=== PATIENT | female | born 1960 | race Hispanic/Latino ===

== ENCOUNTER 2017-12-10 14:23 | Emergency (ER) | payer OTHER ==
[2017-12-10 14:59] VITALS: BMI 33.9
[2017-12-10] MEDS ORDERED: Oxycodone/Acetaminophen 5/325 mg Tab PO STA ×2 (14:59→17:20)
--- NOTE | 2017-12-10 15:24 | ED PDOC ---
HPI: Trauma/Fall - HPI Time Seen by Provider: 12/10/17 14:42 Chief Complaint (Nursing): Trauma Chief Complaint (Provider): Trauma History Per: Patient, Family () History/Exam Limitations: no limitations Onset/Duration Of Symptoms: Mins (prior to arrival) Additional Complaint(s): 57 year old female who presents to the emergency department with a complaint of right hand, left knee and right ankle pain status post falling down stairs when she missed a step and attempted to break fall with right hand prior to arrival. Patient denied any head injury, numbness or tingling. 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/2016 - Family History Family History: States: Unknown Family Hx - Social History Current smoker - smoking cessation education provided: No Ex-Smoker (has not smoked in the last 12 months): No Alcohol: Social Drugs: Denies - Immunization History Hx Tetanus Toxoid Vaccination: No Hx Influenza Vaccination: No Hx Pneumococcal Vaccination: No - Home Medications Home Medications: Ambulatory Orders Medication Instructions Recorded Diclofenac Sodium [Voltaren] 50 mg PO TID PRN #15 ect 12/10/17 - Allergies Allergies/Adverse Reactions: Allergies Allergy/AdvReac Type Severity Reaction Status Date / Time amoxicillin [From Augmentin] Allergy RASH Verified 12/10/17 14:51 bupropion [From Wellbutrin] Allergy RASH Verified 12/10/17 14:51 clavulanic acid Allergy RASH Verified 12/10/17 14:51 [From Augmentin] metronidazole [From Flagyl] Allergy RASH Verified 12/10/17 14:51 Review of Systems ROS Statement: Except As Marked, All Systems Reviewed And Found Negative Musculoskeletal: Positive for: Hand Pain (right-sided), Leg Pain (left knee), Foot Pain (right ankle) Neurological: Negative for: Numbness (or tingling), Other (head injury) Physical Exam - Reviewed Nursing Documentation Reviewed: Yes Vital Signs Reviewed: Yes - Physical Exam Appears: Positive for: Non-toxic, In Acute Distress (moderate pain) Pulses-Dorsalis Pedis (R): 2+ Pulses-Femoral (L): 2+ Extremity: Positive for: Tenderness (moderately to right thenar, right lateral malleolus and left knee ), Swelling (moderately to right lateral malleolus and left knee), Other (superfical abrasions to left knee). Negative for: Deformity (right hand, right ankle or left knee) Neurologic/Psych: Positive for: Alert, Oriented - Progress ED Course And Treament: Ankle immobilized in aircast splint applied by digital imaging technician. Crutches provided. Knee abrasions irrigated with NS and DSD applied. Knee tara wrapped applied. Medical Decision Making Medical Decision Making: Initial Impression: Right ankle, right hand and left knee pain S/P fall Initial Plan: * Xray knee (left) * Xray ankle (right) * Xray hand (right) * Ultram 100mg PO Time: 1612 --Xray knee (left) FINDINGS: BONES: Satisfactory position alignment of components left TKA. . No fracture. JOINTS: Normal. No osteoarthritis. JOINT EFFUSION: None. OTHER FINDINGS: None. IMPRESSION: No acute findings related to/accounting for the clinical presentation. Time: 1613 --Xray hand (right) FINDINGS: BONES: Normal. No fracture. JOINTS: Mild osteoarthritic changes distal interphalangeal and to lesser extent proximal interphalangeal joint distribution. SOFT TISSUES: Normal. OTHER FINDINGS: None. IMPRESSION: No acute findings related to/accounting for the clinical presentation. Time: 1613 --Xray ankle (right) FINDINGS: BONES: Normal. No fracture. JOINTS: Normal. No osteoarthritis. Ankle mortise maintained. Talar dome intact SOFT TISSUES: Lateral soft tissue swelling without distal fibular fracture. OTHER FINDINGS: None. IMPRESSION: Soft tissue swelling without acute articular or osseous abnormality. Time: 1653 --Upon provider reevaluation, patient is feeling better, medically stable and requires no further treatment in the ED at this time. Patient will be discharged home. Counseling was provided and all questions were answered regarding diagnosis and need for follow up with PMD. There is agreement to discharge plan. Return if symptoms persist or worsen. Clinical Impression: Ankle sprain; knee contusion; hand injury Scribe Attestation: Documented by Alla Oliver, acting as a scribe for Oneal Escobar PA-C. Provider Scribe Attestation: All medical record entries made by the Scribe were at my direction and personally dictated by me. I have reviewed the chart and agree that the record accurately reflects my personal performance of the history, physical exam, medical decision making, and the department course for this patient. I have also personally directed, reviewed, and agree with the discharge instructions and disposition. Disposition - Clinical Impression Clinical Impression: Ankle sprain, Knee contusion, Hand injury - Patient ED Disposition Is Patient to be Admitted: No Counseled Patient/Family Regarding: Studies Performed, Diagnosis, Need For Followup - Disposition Referrals: [facility] Quezada [Outside] Disposition: Routine/Home Disposition Time: 16:54 Condition: STABLE Prescriptions: Diclofenac Sodium [Voltaren] 50 mg PO TID PRN #15 ect PRN Reason: Pain Instructions: Ankle Sprain (ED), Crutch Instructions (ED), Ankle Stirrup Splint (ED), Abrasion (ED), Knee Pain (ED) Forms: [employer] ([place]an) Print Language: SERBIAN
[2017-12-10 15:28] VITALS: BP 139/94; PULSE 68; RESP 18; TEMP 97.7; O2SAT 98
[2017-12-10] MEDS ORDERED: Oxycodone/Acetaminophen 5/325 mg Tab ONE (15:30)
--- NOTE | 2017-12-10 16:14 | RAD ---
PROCEDURE: Right Hand Radiographs. Anatomic area of interest: 1st metacarpal region HISTORY: trauma COMPARISON: None. FINDINGS: BONES: Normal. No fracture. JOINTS: Mild osteoarthritic changes distal interphalangeal and to lesser extent proximal interphalangeal joint distribution. SOFT TISSUES: Normal. OTHER FINDINGS: None. IMPRESSION: No acute findings related to/accounting for the clinical presentation. Concordant results with the preliminary interpretation rendered by the emergency department physician procedure.
--- NOTE | 2017-12-10 16:14 | RAD ---
PROCEDURE: Left Knee Radiographs. Is HISTORY: Prepatellar pain. Recent trauma. COMPARISON: None. FINDINGS: BONES: Satisfactory position alignment of components left TKA. . No fracture. JOINTS: Normal. No osteoarthritis. JOINT EFFUSION: None. OTHER FINDINGS: None. IMPRESSION: No acute findings related to/accounting for the clinical presentation. Concordant results with the preliminary interpretation rendered by the emergency department physician procedure.
--- NOTE | 2017-12-10 16:15 | RAD ---
PROCEDURE: Right Ankle Radiographs. HISTORY: trauma COMPARISON: None FINDINGS: BONES: Normal. No fracture. JOINTS: Normal. No osteoarthritis. Ankle mortise maintained. Talar dome intact SOFT TISSUES: Lateral soft tissue swelling without distal fibular fracture. OTHER FINDINGS: None. IMPRESSION: Soft tissue swelling without acute articular or osseous abnormality. Concordant results with the preliminary interpretation rendered by the emergency department physician procedure.
== END 2017-12-10 17:25 | disposition home or self-care (01) ==
LOC: H.ER 14:23
DX: S80.02XA Contusion of left knee, initial encounter (principal); S93.401A Sprain of unspecified ligament of right ankle, initial encounter; S69.91XA Unspecified injury of right wrist, hand and finger(s), initial encounter; W10.9XXA Fall (on) (from) unspecified stairs and steps, initial encounter; Y92.89 Other specified places as the place of occurrence of the external cause; Z88.0 Allergy status to penicillin; Z96.653 Presence of artificial knee joint, bilateral